=== PATIENT | male | born 1960 | race Caucasian/White ===

== ENCOUNTER 2019-04-22 11:24 | Inpatient (IN) | payer BC ==
[~2019-04-22] VITALS: Ht 179.1 cm; Wt 102.1 kg
[2019-04-22] MEDS ORDERED: LIDOCAINE 2% (UROJET) 10 ML JELLY MM ONE ×2 (11:29→11:30)
[2019-04-22] MEDS ORDERED: IV NORMAL SALINE 1000 ML BAG IV ONE (11:30)
--- NOTE | 2019-04-22 11:30 | NUR ---
Patient BIB [facility] for ALOC. Patient A/Ox2. Respiratory even and unlabored, no cough no sob. No cardiovascular distress noted, allpulses palpable. Patient in bed at lowest position, sr upx2, call light within reach. Fall precautions implemented per protocol. Uncle and mother at bedside accompanying patient.
[2019-04-22] MEDS ORDERED: METO-356 PO (11:32)
[2019-04-22] MEDS ORDERED: ALPR2TAB7 PO (11:32)
[2019-04-22] MEDS ORDERED: ASPI-612 PO (11:32)
[2019-04-22] MEDS ORDERED: ATOR40TA PO (11:32)
[2019-04-22] MEDS ORDERED: BUPR-96 PO (11:32)
[2019-04-22] MEDS ORDERED: OLAN20TA3 PO (11:32)
[2019-04-22 11:51] LABS: BASOPHILS % (AUTO) 0.6 % (0.0-2.0); EOSINOPHILS # (AUTO) 0.1 K/uL (0.0-0.7); HEMATOCRIT 41.7 % (36.7-47.1); HEMOGLOBIN 14.3 g/dL (12.5-16.3); LYMPHOCYTES # (AUTO) 1.9 K/uL (20.0-40.0); LYMPHOCYTES % (AUTO) 26.7 % (20.5-51.5); MEAN CORPUSCULAR HEMOGLOBIN 30.2 uug (23.8-33.4); MEAN CORPUSCULAR HGB CONC 34 g/dL (32.5-36.3); MEAN CORPUSCULAR VOLUME 88.2 fL (73.0-96.2); MONOCYTES # (AUTO) 0.6 K/uL (2.0-10.0); MONOCYTES % (AUTO) 8.8 % (0.0-11.0); NEUTROPHILS # (AUTO) 4.5 K/uL (1.8-8.9); NEUTROPHILS % (AUTO) 62.9 % (38.5-71.5); PLATELET COUNT (AUTO) 243 K/uL (152-348); RED BLOOD CELL COUNT(AUTO) 4.73 MIL/uL (4.06-5.63); WHITE BLOOD COUNT (AUTO) 7.2 K/uL (3.6-10.2)
[2019-04-22 11:55] LABS: *BILIRUBIN,URIN NEGATIVE (NEGATIVE); *BLOOD, URINE NEGATIVE (NEGATIVE); *CLARITY,URINE CLEAR (CLEAR); *COLOR,URINE DARK YELLOW (YELLOW); *KETONES,URINE NEGATIVE (NEGATIVE); *UROBILINOGEN,URINE 0.2 E.U./dl (NORMAL); LEUKOCYTE ESTERASE ,URINE NEGATIVE (NEGATIVE); NITRITE, URINE NEGATIVE (NEGATIVE); PH,URINE 5.5 (5.0-8.0); UGLUCOSE NEGATIVE (NEGATIVE)
[2019-04-22 12:04] LABS: MUCUS,URINE FEW /LPF (0-FEW); SQUAMOUS EPITHELIAL CELL,UR NONE SEEN /HPF (NONE SEEN)
[2019-04-22 12:05] LABS: BACTERIA,URINE FEW /HPF (NONE SEEN); RBC,URINE 0-3 /HPF (0-3); WBC,URINE 0-3 /HPF (0-3)
[2019-04-22 12:08] LABS: CARBON DIOXIDE 24 mmol/L (21-32); CHLORIDE 102 mmol/L (98-107); CREATININE 1.2 mg/dL (0.6-1.3); GLUCOSE 105 mg/dL (74-106); POTASSIUM 3.8 mmol/L (3.5-5.1); UREA NITROGEN, BLOOD 20 mg/dL (7-18)
[2019-04-22 12:21] LABS: THYROID STIMULATING HORMONE 4.202 mIU/mL (0.358-3.740)
[2019-04-22 12:28] LABS: ALANINE AMINOTRANSFERASE 12 U/L (16-63); ALKALINE PHOSPHATASE 69 U/L (50-136); ASPARTATE AMINOTRANSFERASE 15 U/L (15-37); BILIRUBIN,DIRECT 0.2 mg/dL (0.0-0.2); TOTAL PROTEIN, SERUM 7.6 g/dL (6.4-8.2)
[2019-04-22 12:29] LABS: ACETAMINOPHEN < 2.0 ug/mL (10-30)
[2019-04-22 12:32] LABS: *AMPHETAMINE, URINE NEGATIVE (NEGATIVE); *BARBITURATE, URINE NEGATIVE (NEGATIVE); *CANNABINOID, URINE NEGATIVE (NEGATIVE); *COCCAINE, URINE NEGATIVE (NEGATIVE); *OPIATE, URINE NEGATIVE (NEGATIVE); *PHENCYCLIDINE SCREEN,URINE NEGATIVE (NEGATIVE)
[2019-04-22 12:33] LABS: ETHANOL < 3 MG/DL (0-0)
[2019-04-22] MEDS ORDERED: CEFTRIAXONE 1 G in IV DEXTROSE 5% 50 ML IV ONE (13:15)
[2019-04-22] MEDS ORDERED: CEFTRIAXONE /D5W 50ML IVPB **ER PYXIS IV ONE (13:21)
--- NOTE | 2019-04-22 13:28 | NUR ---
Patient in bed at lowest position, sr upx2, call light within reach.
--- NOTE | 2019-04-22 13:50 | NUR ---
Report given to Madison RN
--- NOTE | 2019-04-22 13:53 | NUR ---
Patient transported to TELE in stable condition.
[2019-04-22 14:45] VITALS: BP 115/78
[2019-04-22] MEDS ORDERED: Z GUARD REMEDY PASTE 57 GM TUBE TOP PRN (15:45)
[2019-04-22] MEDS ORDERED: ACETAMINOPHEN 325 MG TABLET PO PRN (15:45)
[2019-04-22] MEDS ORDERED: IV NORMAL SALINE 500 ML IV ONE (15:45)
[2019-04-22] MEDS ORDERED: ONDANSETRON 4 MG/2 ML VIAL IV PRN (15:45)
[2019-04-22] MEDS ORDERED: METOPROLOL SUCCINATE XL 25 MG TAB.SR.24H PO SCH (17:00)
[2019-04-22] MEDS ORDERED: BUPR150T5 PO (17:26)
[2019-04-22 19:23] VITALS: BP 92/58
[2019-04-22] MEDS ORDERED: ATORVASTATIN 40 MG TABLET PO SCH (21:00)
--- NOTE | 2019-04-22 21:06 | NUR ---
PATIENT IS VERY LETHARGIC AND SLEEPING, ABLE TO AROUSE BUT WILL GO BACK TO SLEEP. HELD PO MEDICATIONS FOR NOW. IV ON LEFT HAND INTACT AND PATENT, FLUIDS RUNNING. IN NO ACUTE DISTRESS AT THIS TIME.
[2019-04-22] MEDS: IV NS 1000 ML 1,000 ML IV PRN (23:12)
[2019-04-23 00:11] VITALS: BP 90/66
[2019-04-23 04:55] VITALS: BP 110/73
[2019-04-23 05:51] LABS: BILIRUBIN,TOTAL 1.7 mg/dL (0.2-1.0); CREATININE 0.9 mg/dL (0.6-1.3); MAGNESIUM 1.9 mg/dL (1.8-2.4); PHOSPHOROUS 3.6 mg/dL (2.5-4.9); POTASSIUM 3.8 mmol/L (3.5-5.1); TOTAL PROTEIN, SERUM 6.5 g/dL (6.4-8.2)
[2019-04-23 06:01] LABS: BASOPHILS % (AUTO) 0.5 % (0.0-2.0); EOSINOPHILS # (AUTO) 0.1 K/uL (0.0-0.7); HEMATOCRIT 40.2 % (36.7-47.1); HEMOGLOBIN 13.6 g/dL (12.5-16.3); LYMPHOCYTES # (AUTO) 1.5 K/uL (20.0-40.0); LYMPHOCYTES % (AUTO) 27.8 % (20.5-51.5); MEAN CORPUSCULAR HGB CONC 34 g/dL (32.5-36.3); MEAN CORPUSCULAR VOLUME 88.7 fL (73.0-96.2); MONOCYTES # (AUTO) 0.5 K/uL (2.0-10.0); MONOCYTES % (AUTO) 8.6 % (0.0-11.0); NEUTROPHILS # (AUTO) 3.3 K/uL (1.8-8.9); NEUTROPHILS % (AUTO) 61.1 % (38.5-71.5); PLATELET COUNT (AUTO) 192 K/uL (152-348); RED BLOOD CELL COUNT(AUTO) 4.53 MIL/uL (4.06-5.63); WHITE BLOOD COUNT (AUTO) 5.4 K/uL (3.6-10.2)
--- NOTE | 2019-04-23 06:32 | NUR ---
Patient slept well through out the night. Patient was able to ambulate w/ standy assist to go to bathroom. IV on RFA intact and patent w/ IVF infusing. Cont on 1:1 for safety. SR on Tele monitor. All needs attended. Will endorse accordingly
--- NOTE | 2019-04-23 07:25 | NUR ---
Received patient sleeping in bed. No acute distress noted. bed in lowest position, side rails up x2, call light within reach and sitter at bedside. Will continue to monitor.
[2019-04-23 07:33] VITALS: BP 106/70
[2019-04-23] MEDS: IV NS 1000 ML 1,000 ML IV PRN (08:53)
[2019-04-23] MEDS ORDERED: OLANZAPINE 5 MG TABLET PO SCH (09:00)
[2019-04-23] MEDS ORDERED: METOPROLOL SUCCINATE XL 25 MG TAB.SR.24H PO SCH ×2 (09:00→10:15)
[2019-04-23] MEDS ORDERED: buPROPion XL 150 MG TAB.SR.24H PO SCH (09:00)
[2019-04-23] MEDS ORDERED: ASPIRIN 325 MG TABLET PO SCH (09:00)
[2019-04-23] MEDS ORDERED: buPROPion SR 150 MG TABLET.SA PO SCH (09:00)
[2019-04-23 12:30] VITALS: BP 94/56
[2019-04-23] MEDS ORDERED: CEFTRIAXONE 2 G in IV DEXTROSE 5% 100 ML IV SCH (13:00)
[2019-04-23 15:31] VITALS: BP 101/61
--- NOTE | 2019-04-23 16:00 | NUR ---
Discharged patient home. Reviewed D/C instructions with patient and mother, patient and mother verbally understand instructions. D/C'd IV without complications. Removed patients telemetry box. Helped patient get dressed, removed ID wrist band. Patient escorted down to car via wheelchair.
== END 2019-04-23 15:55 | disposition home or self-care (01) | DRG 896 ==
LOC: ER 11:24 → TELE3 13:48 → TELE-TD3 14:30 → TELE3 14:35 → MEDSURG3 04-23 14:30
PROVIDERS: ADMIT Nurse Practitioner Acute Care; ATTEND Nurse Practitioner Acute Care
DX: F13.232 Sedative, hypnotic or anxiolytic dependence with withdrawal with perceptual disturbance (principal); G93.41 Metabolic encephalopathy; R44.3 Hallucinations, unspecified; E87.2 Acidosis; E66.9 Obesity, unspecified; Z68.31 Body mass index [BMI] 31.0-31.9, adult; E03.9 Hypothyroidism, unspecified; E86.0 Dehydration; F32.9 Major depressive disorder, single episode, unspecified; I25.10 Atherosclerotic heart disease of native coronary artery without angina pectoris; Z95.2 Presence of prosthetic heart valve; Z82.49 Family history of ischemic heart disease and other diseases of the circulatory system; Z81.8 Family history of other mental and behavioral disorders; I10 Essential (primary) hypertension; G93.89 Other specified disorders of brain; Z79.82 Long term (current) use of aspirin
CPT/HCPCS: 36415; 70030-TC; 70450; 71045; 80307; 83605; 83735; 84100; 84443; 85025; 85730; 87040; 93005; A4663; C1758; G0378; G0480; G0480-TC; J0696; J7030; J7040; J7060

== ENCOUNTER 2020-12-29 10:26 | Emergency (ER) | payer BC, MEDICAID, OTHER ==
[~2020-12-29] VITALS: Ht 177.8 cm; Wt 99.8 kg
[~2020-12-29 10:26] MED LIST: ALPR2TAB7 PO; ASPI-612 PO; ATOR40TA PO; BUPR150T5 PO; METO-356 PO; OLAN20TA3 PO
--- NOTE | 2020-12-29 10:40 | NUR ---
PT IS IN ROOM #2A. DR ROBERTS EVALUATED THE PT.
[2020-12-29] MEDS ORDERED: IV NORMAL SALINE 1000 ML BAG IV ONE ×2 (10:45→13:15)
[2020-12-29 11:28] LABS: HEMATOCRIT 47.2 % (36.7-47.1); MEAN CORPUSCULAR HEMOGLOBIN 30.2 uug (23.8-33.4); PLATELET COUNT (AUTO) 275 K/uL (152-348)
[2020-12-29] MEDS ORDERED: SERT100T PO (11:32)
[2020-12-29] MEDS ORDERED: CLON1TAB12 PO (11:32)
[2020-12-29] MEDS ORDERED: CLON0.1T PO (11:32)
[2020-12-29] MEDS ORDERED: METO-357 PO (11:32)
[2020-12-29 11:36] LABS: POTASSIUM 4.6 mmol/L (3.5-5.1)
[2020-12-29 11:42] LABS: BILIRUBIN,DIRECT 0.2 mg/dL (0.0-0.2); BILIRUBIN,TOTAL 1.1 mg/dL (0.2-1.0); TOTAL PROTEIN, SERUM 8.4 g/dL (6.4-8.2)
[2020-12-29 12:17] LABS: THYROID STIMULATING HORMONE 2.541 mIU/mL (0.358-3.740)
[2020-12-29 13:43] LABS: *BILIRUBIN,URIN NEGATIVE (NEGATIVE); *BLOOD, URINE NEGATIVE (NEGATIVE); *CLARITY,URINE CLEAR (CLEAR); *COLOR,URINE YELLOW (YELLOW); *KETONES,URINE NEGATIVE (NEGATIVE); *UROBILINOGEN,URINE 0.2 E.U./dl (NORMAL); LEUKOCYTE ESTERASE ,URINE NEGATIVE (NEGATIVE); NITRITE, URINE NEGATIVE (NEGATIVE); UGLUCOSE NEGATIVE (NEGATIVE)
[2020-12-29 14:00] LABS: CALCIUM OXALATE CRYSTALS,UR FEW /HPF (NONE SEEN); MUCUS,URINE MANY /LPF (0-FEW); RBC,URINE 0-3 /HPF (0-3); WBC,URINE 0-3 /HPF (0-3)
--- NOTE | 2020-12-29 17:26 | NUR ---
[facility] CALLED WITH TRANSFER INFORMATION. PT IS GOING TO BE TRANSFERED TO [facility], ACCEPTING MD IS DR ORTIZ, TELEPHONE FOR REPORT IS [phone]. [facility] CALL[facility] TO TRANSFER THE PT. MARIUSZ IS 2 HRS. PT IS RESTING IN BED COMFORTABLY. NO S/S OF DISTRESS AT THIS TIME.
--- NOTE | 2020-12-29 20:58 | NUR ---
PT WAS TRANSFERED TO [facility]. REPORT WAS GIVEN TO AMBULANCE RN AND TO [facility].
== END 2020-12-29 21:03 | disposition short-term general hospital (02) ==
LOC: ER 10:26
DX: R29.6 Repeated falls (principal); E86.0 Dehydration; Z82.49 Family history of ischemic heart disease and other diseases of the circulatory system; G93.89 Other specified disorders of brain; Z20.822 Contact with and (suspected) exposure to COVID-19; Z95.2 Presence of prosthetic heart valve; Z79.899 Other long term (current) drug therapy; E66.9 Obesity, unspecified; Z68.31 Body mass index [BMI] 31.0-31.9, adult; E03.9 Hypothyroidism, unspecified; Z79.82 Long term (current) use of aspirin; F32.9 Major depressive disorder, single episode, unspecified; I25.10 Atherosclerotic heart disease of native coronary artery without angina pectoris
CPT/HCPCS: 36415; 70030-TC; 70450; 71045; 72125; 84443; 85025; 85730; 93005; A4663; J7030